=== PATIENT | male | born 1985 | race Caucasian/White ===

== ENCOUNTER 2018-12-23 16:35 | Inpatient (IN) | payer OTHER ==
[~2018-12-23] VITALS: Ht 170.2 cm; Wt 95.3 kg
[2018-12-23 18:20] LABS: BASOPHILS 0.2 % (0-2); EOSINOPHILS 0.1 % (0-7); HEMATOCRIT 44.1 % (42.0-54.0); HEMOGLOBIN 15.9 g/dL (13.5-17.5); IMMATURE GRANULOCYTES 0.3 % (0-5); LYMPHOCYTES 8.4 % (15-50); MCH 31.3 pg (26.0-34.0); MCHC 36.1 g/dL (31.0-37.0); MCV 86.8 fL (80.0-100.0); MEAN PLATELET VOLUME 9.6 fL (7.4-10.4); MONOCYTES 7.7 % (2-11); NEUTROPHILS 83.3 % (40-80); PLATELET COUNT 238 10x3/uL (130-400); RBC 5.08 10x6/uL (4.20-6.10); RDW 12.4 % (11.5-14.5); WBC 19.8 10x3/uL (4.8-10.8)
[2018-12-23 18:30] LABS: ALKALINE PHOSPHATASE 98 U/L (46-116); ALT (SGPT) 59 U/L (10-68); AMYLASE - SERUM 58 U/L (25-115); BILIRUBIN - TOTAL 0.47 mg/dL (0.2-1.3); CALC OSMOLALITY 273 mosm/kg (275-300); CALCIUM 9.2 mg/dL (8.5-10.1); CARBON DIOXIDE 27.6 mmol/L (21.0-32.0); CHLORIDE - SERUM 98 mmol/L (98-107); GLUCOSE 114 mg/dL (74-106); LIPASE 125 U/L (73-393); POTASSIUM - SERUM 3.9 mmol/L (3.5-5.1); PROTEIN - SERUM 8.1 g/dL (6.4-8.2); SODIUM 137 mmol/L (136-145); UREA NITROGEN 11 mg/dL (7-18); eGFR NON AFRICAN AMERICAN 90 mL/min (90-120)
--- NOTE | 2018-12-23 18:34 | NUR ---
PT STABLE, CALL LIGHT WITHIN REACH, WILL CONTINUE TO MONITOR.
--- NOTE | 2018-12-23 19:00 | NUR ---
PT REPORT HANDED OFF TO SALOME BEAULIEU. PT STABLE, CALL LIGHT WITHIN REACH, WILL CONTINUE TO MONITOR.
--- NOTE | 2018-12-23 19:30 | NUR ---
ASSUMED CARE OF PATIENT, RESTING ON STRETCHER WITH FAMILY AT BEDIDE, NS INFUSING PER ORDER, DRINKING CONTRAST FOR CT.
[2018-12-23 20:05] VITALS: BP 121/80
--- NOTE | 2018-12-23 20:07 | NUR ---
TO CT VIA WHEELCHAIR PER TECH.
[2018-12-23 20:18] LABS: APPEARANCE CLEAR (CLEAR); BILIRUBIN NEGATIVE (NEGATIVE); COLOR YELLOW (YELLOW); GLUCOSE NEGATIVE (NEGATIVE); KETONE NEGATIVE (NEGATIVE); NITRITE NEGATIVE (NEGATIVE); PROTEIN NEGATIVE (NEGATIVE); UROBILINOGEN NORMAL (NORMAL)
--- NOTE | 2018-12-23 21:30 | NUR ---
PT WILL BE ADMITTED, ON A CLEAR LIQUID DIET, CHICKEN BROTH AND SPRITE GIVEN. PT C/O A HEADACHE, STATES IT'S 2/10 ON PAIN SCALE.
[2018-12-23 21:35] VITALS: BP 123/79
[2018-12-23 23:15] VITALS: BP 124/77
--- NOTE | 2018-12-23 23:15 | NUR ---
TYLENOL GIVEN FOR TEMP AND HEADACHE, CALL LIGHT WITHIN REACH.
--- NOTE | 2018-12-24 00:30 | NUR ---
PT ARRIVED TO THE FLOOR. ALERT AND ORIENTED. NO SIGNS OF DISTRESS. BREATHING EVEN AND UNLABORES. PT STATES NO PROBLEMS AT THIS TIME. VITALS STABLE. WILL CONTINUE PLAN OF CARE. CALL LIGHT IN REACH.
--- NOTE | 2018-12-24 01:29 | NUR ---
resting in bed resprations evennand unlabored call light in reach
[2018-12-24 04:00] VITALS: BP 121/76
[2018-12-24 05:15] VITALS: BP 123/74; BMI 32.9
--- NOTE | 2018-12-24 08:00 | NUR ---
REPORT RECIEVED ASSUMED CARE. PATIENT IN BED WITH IV INTACT. NO COMPLAINTS OR SIGNS OF DISTRESS. CALL LIGHT WITHIN REACH.
[2018-12-24 09:07] VITALS: BP 109/73; BP 119/80
--- NOTE | 2018-12-24 11:45 | NUR ---
PATIENT IN BED WITH IV INTACT. BSCDS ON AND WORKING. CALL LIGHT WITHIN REACH. NO COMPLAINTS OR SIGNS OF DSITRESS. CALL LIGHT WITHIN REACH.
[2018-12-24 11:55] LABS: BASOPHILS 0.1 % (0-2); EOSINOPHILS 0.2 % (0-7); HEMATOCRIT 40.4 % (42.0-54.0); HEMOGLOBIN 14.4 g/dL (13.5-17.5); IMMATURE GRANULOCYTES 0.3 % (0-5); LYMPHOCYTES 13.5 % (15-50); MCH 31.4 pg (26.0-34.0); MCHC 35.6 g/dL (31.0-37.0); MCV 88.2 fL (80.0-100.0); MEAN PLATELET VOLUME 9.5 fL (7.4-10.4); NEUTROPHILS 75.9 % (40-80); PLATELET COUNT 229 10x3/uL (130-400); RBC 4.58 10x6/uL (4.20-6.10); RDW 12.6 % (11.5-14.5); WBC 14.3 10x3/uL (4.8-10.8)
[2018-12-24 12:06] LABS: ALBUMIN 3.2 g/dL (3.4-5.0); ALKALINE PHOSPHATASE 89 U/L (46-116); ALT (SGPT) 50 U/L (10-68); BILIRUBIN - TOTAL 0.84 mg/dL (0.2-1.3); CALC OSMOLALITY 274 mosm/kg (275-300); CALCIUM 8.3 mg/dL (8.5-10.1); CARBON DIOXIDE 28.7 mmol/L (21.0-32.0); CHLORIDE - SERUM 102 mmol/L (98-107); CREATININE - SERUM 0.9 mg/dL (0.6-1.3); GLUCOSE 82 mg/dL (74-106); POTASSIUM - SERUM 3.5 mmol/L (3.5-5.1); PROTEIN - SERUM 7.2 g/dL (6.4-8.2); SODIUM 139 mmol/L (136-145); eGFR NON AFRICAN AMERICAN > 90 mL/min (90-120)
[2018-12-24 12:08] LABS: UREA NITROGEN 8 mg/dL (7-18)
[2018-12-24 13:23] VITALS: Ht 170.2 cm; Wt 95.3 kg
[2018-12-24 13:49] VITALS: BP 113/70
[2018-12-24 16:45] VITALS: BP 119/75
--- NOTE | 2018-12-24 18:52 | NUR ---
PATIENT IN BED WITH IV INTACT. NO COMPLAINTS OR SIGNS OF DISTRESS. FAMILY AT BEDSIDE. BSCDS OFF AT THIS TIME. CALL LIGHT WITHIN REACH.
--- NOTE | 2018-12-24 20:40 | NUR ---
PT RESTING IN BED. ALERT AND ORIENTED. NO SIGNS OF DISTRESS. BREATHING EVEN AND UNLABORED. PT STATES NO PROBLEMS AT THIS TIME. SKIN CLEAN DRY AND INTACT. IV SITE LT FA DRESSING CLEAN DRY AND INTACT. NO SIGNS OF INFECTION. BOWEL SOUNDS ACTIVE. LUNG SOUNDS CLEAR. NO LOWER LEG SWELLING PRESENT. WILL CONTINUE PLAN OF CARE. CALL LIGHT IN REACH.
[2018-12-24 21:20] VITALS: BP 113/77
[2018-12-25] VITALS (8 sets, daily range): BP systolic 104–116; BP diastolic 58–76
[2018-12-25 05:29] LABS: BASOPHILS 0.3 % (0-2); EOSINOPHILS 1.3 % (0-7); HEMATOCRIT 38.5 % (42.0-54.0); HEMOGLOBIN 13.3 g/dL (13.5-17.5); IMMATURE GRANULOCYTES 0.3 % (0-5); LYMPHOCYTES 21.2 % (15-50); MCH 30.8 pg (26.0-34.0); MCHC 34.5 g/dL (31.0-37.0); MCV 89.1 fL (80.0-100.0); MEAN PLATELET VOLUME 9.7 fL (7.4-10.4); MONOCYTES 8.6 % (2-11); NEUTROPHILS 68.3 % (40-80); PLATELET COUNT 223 10x3/uL (130-400); RBC 4.32 10x6/uL (4.20-6.10); RDW 12.6 % (11.5-14.5); WBC 11.9 10x3/uL (4.8-10.8)
[2018-12-25 06:22] LABS: ALKALINE PHOSPHATASE 83 U/L (46-116); ALT (SGPT) 40 U/L (10-68); BILIRUBIN - TOTAL 0.57 mg/dL (0.2-1.3); CALC OSMOLALITY 275 mosm/kg (275-300); CALCIUM 8.2 mg/dL (8.5-10.1); CARBON DIOXIDE 25.6 mmol/L (21.0-32.0); CHLORIDE - SERUM 102 mmol/L (98-107); CREATININE - SERUM 0.8 mg/dL (0.6-1.3); GLUCOSE 99 mg/dL (74-106); POTASSIUM - SERUM 3.9 mmol/L (3.5-5.1); PROTEIN - SERUM 6.4 g/dL (6.4-8.2); SODIUM 139 mmol/L (136-145); UREA NITROGEN 7 mg/dL (7-18); eGFR NON AFRICAN AMERICAN > 90 mL/min (90-120)
--- NOTE | 2018-12-25 09:53 | NUR ---
PT RESTING QUIETLY IN BED. NO ACUTE DISTRESS NOTED AT THIS TIME. CL WITHIN REACH. CONTINUE TO MONITOR.
--- NOTE | 2018-12-25 10:06 | NUR ---
PATIENT UP AND IN SHOWER AT 0730, SKIN W/D TO TOUCH, COLOR PINK, RESP. REGULAR AND EVEN AT 20. 1/2 NS IINFUSING AT 125 MLS VIA LEFT FOREARM VIA PUMP, NO REDNESS OR SWELLING NOTED. ABDOMEN FIRM WITH BS + IN ALL 4 QUADS. PATIENT CONSUMED 100% OF CLEAR LIQUID BREAKFAST. DENIES ANY C/O WHEN ASKED.
--- NOTE | 2018-12-25 15:31 | NUR ---
NUTRITION F/U PROVIDED PT WITH DIVERTICULITIS DIET GUIDELINES. INSTRUCTED PT TO START LOW FIBER DIET AT DC WITH GRADUAL INCREASE TO HI FIBER DIET. ALSO ENCOURAGED ADEQUATE FLUID INTAKE. PT VOICED UNDERSTANDING. RD FOLLOWING
--- NOTE | 2018-12-25 16:13 | NUR ---
PATIENT C/O NAUSEA ZODRAN 8 MG IVP GIVEN. PATIENT WALKING ABOUT FACILITY.
--- NOTE | 2018-12-25 16:55 | MORECARE ---
CASE MANAGEMENT DISCHARGE SUMMARY PATIENT: SAMIR ARANA UNIT: [id number] ADM DATE: 12/23/18 AGE: 33 : 81 SEX: M ROOM/BED: D.2229 AUTHOR: ESTELLE COON PHYSICIAN: REFERRING PHYSICIAN: MICHELLE FREIRE DO DATE OF SERVICE: 12/25/18 Discharge Plan Patient Name: SAMIR ARANA Facility: [facility]:[place] : 1985 Planned Disposition: Home Anticipated Discharge Date: Discharge Date: Expected LOS: Initial Reviewer: [email or web address] Initial Review Date: 12/25/2018 Generated: 12/25/18 5:55 pm Comments DCP- Discharge Planning Updated by [email or web address]: Miranda Madrid on 12/25/18 3:[address] Patient Name: SAMIR ARANA Admission Status: ER Accout number: [id number] Admission Date: 12-23-2018 : 1985 Admission Diagnosis: Attending: MICHELLE FREIRE Current LOS: 2 Anticipated DC Date: Planned Disposition: Home Primary Insurance: [employer] POS Discharge Planning Comments: CM met with patient to discuss discharge planning, he is alone in the room. States he lives independently with his and 2 children in a one story home. He has no DME or need any DME. 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 He does not use any outside community resources and declines need. His or parents will drive him home on discharge. No needs identified. CM will continue to follow and assist with discharge planning/needs. Sports Team Marketing Intern: Miranda Madrid DCPIA - Discharge Planning Initial Assessment Updated by [email or web address]: Miranda Madrid on 12/25/18 4:52 pm * Is the patient Alert and Oriented? Yes * How many steps to enter\exit or inside your home? 4/0 * PCP Dr. Zaldivar * Pharmacy [facility] * Preadmission Environment Home with Family * ADLs Independent * Equipment None * List name and contact numbers for known caregivers / representatives who currently or will assist patient after discharge: Maria Victoria Arana - - [phone] * Verbal permission to speak to the caregivers and representatives has been obtained from the patient. Yes * Community resources currently utilized None * Additional services required to return to the preadmission environment? No * Can the patient safely return to the preadmission environment? Yes * Has this patient been hospitalized within the prior 30 days at any hospital? No Patient Name: SAMIR ARANA Page [id number] at 1655 All edits/amendments must be made on the electronic document DICTATION DATE: 12/25/181653 EPITAXIAL REACTOR OPERATOR: CRYSTAL 12/25/181653 RPT#: [id number] DC DATE: STATUS: ADM IN [facility] [address] [place] [address] END OF REPORT
--- NOTE | 2018-12-25 20:30 | NUR ---
PT RESTING IN BED. ALERT AND ORIENTED. NO SIGNS OF DISTRESS. BREATHING EVEN AND UNLABORED. PT STATES NO PROBLEMS AT THIS TIME. IV SITE LT FA DRESSING CLEAN DRY AND INTACT. NO SIGNS OF INFECTION. SKIN CLEAN SRY AND INTACT. BOWEL SOUNDS ACTIVE. NO LOWER LEG SWELLING PRESENT. WILL CONTINUE PLAN OF CARE. CALL LIGHT IN REACH. BED LOWERED AND LOCKED. BED RAIL X1.
[2018-12-26 00:14] VITALS: BP 108/67
[2018-12-26 04:12] LABS: BASOPHILS 0.3 % (0-2); EOSINOPHILS 1.4 % (0-7); HEMATOCRIT 38.9 % (42.0-54.0); HEMOGLOBIN 13.5 g/dL (13.5-17.5); IMMATURE GRANULOCYTES 0.3 % (0-5); LYMPHOCYTES 19.4 % (15-50); MCHC 34.7 g/dL (31.0-37.0); MCV 89.2 fL (80.0-100.0); MEAN PLATELET VOLUME 9.3 fL (7.4-10.4); MONOCYTES 8.1 % (2-11); NEUTROPHILS 70.5 % (40-80); PLATELET COUNT 240 10x3/uL (130-400); RBC 4.36 10x6/uL (4.20-6.10); RDW 12.5 % (11.5-14.5); WBC 11.7 10x3/uL (4.8-10.8)
--- NOTE | 2018-12-26 04:13 | NUR ---
AGREE WITH PROJECT LANDSCAPE ARCHITECT ASSESSMENT. NO NEEDS AT THIS TIME. WILL CONTINUE TO MONITOR
[2018-12-26 04:28] LABS: ALBUMIN 3.1 g/dL (3.4-5.0); ALKALINE PHOSPHATASE 71 U/L (46-116); ALT (SGPT) 36 U/L (10-68); BILIRUBIN - TOTAL 0.46 mg/dL (0.2-1.3); CALC OSMOLALITY 275 mosm/kg (275-300); CALCIUM 8.4 mg/dL (8.5-10.1); CARBON DIOXIDE 27.5 mmol/L (21.0-32.0); CHLORIDE - SERUM 103 mmol/L (98-107); CREATININE - SERUM 0.9 mg/dL (0.6-1.3); GLUCOSE 105 mg/dL (74-106); POTASSIUM - SERUM 3.9 mmol/L (3.5-5.1); SODIUM 139 mmol/L (136-145); UREA NITROGEN 7 mg/dL (7-18); eGFR NON AFRICAN AMERICAN > 90 mL/min (90-120)
[2018-12-26 08:45] VITALS: BP 112/68
[2018-12-26 12:45] VITALS: BP 120/78
--- NOTE | 2018-12-26 13:20 | NUR ---
OVENS SUPERVISOR NOTE-PT HAS BEEN UP IN [facility] WITHOUT COMPLAINTS. STATES HE IS HOPING FOR DISCHARGE TODAY. STATES HAD OATMEAL FOR AM MEAL AND IS TOLERATING THAT WELL.
[2018-12-26] MEDS ORDERED: LEVAQUIN750 MG PO (14:46)
[2018-12-26] MEDS ORDERED: FLAGYL500 MG PO (14:46)
[2018-12-26 16:53] VITALS: BP 112/68
--- NOTE | 2018-12-26 18:35 | NUR ---
PATIENT TOLERATED SUPPER TRAY WELL LEVAQUIN 750 MG IVPB INFUSING PATIENT WILL WAIT TIL 1999 AND IF NO NAUSEA OR ABDOMINAL PAIN CAN DISCHARGE.
--- NOTE | 2018-12-26 20:01 | NUR ---
IV REMOVED TIP INTACT, DISCHARGED PER WC WITH BELONGINGS, PT STATES [employer] WENT OVER PAPER WORK AND ANSWERED QUESTIONS
--- NOTE | 2018-12-30 12:13 | MORECARE ---
CASE MANAGEMENT DISCHARGE SUMMARY PATIENT: SAMIR ARANA UNIT: [id number] ADM DATE: 12/23/18 AGE: 33 : 81 SEX: M ROOM/BED: D.2229 AUTHOR: ESTELLE COON PHYSICIAN: REFERRING PHYSICIAN: MICHELLE FREIRE DO DATE OF SERVICE: 12/30/18 Discharge Plan Patient Name: SAMIR ARANA Facility: [facility]:[place] : 1985 Planned Disposition: Home Anticipated Discharge Date: Discharge Date: 12/26/2018 Expected LOS: 0 Initial Reviewer: [email or web address] Initial Review Date: 12/25/2018 Generated: 12/30/18 1:13 pm Comments DCP- Discharge Planning Updated by [email or web address]: Miranda Madrid on 12/25/18 3:[address] Patient Name: SAMIR ARANA Admission Status: ER Accout number: [id number] Admission Date: 12-23-2018 : 1985 Admission Diagnosis: Attending: MICHELLE FREIRE Current LOS: 2 Anticipated DC Date: Planned Disposition: Home Primary Insurance: [employer] POS Discharge Planning Comments: CM met with patient to discuss discharge planning, he is alone in the room. States he lives independently with his and 2 children in a one story home. He has no DME or need any DME. 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 He does not use any outside community resources and declines need. His or parents will drive him home on discharge. No needs identified. CM will continue to follow and assist with discharge planning/needs. Emd Teacher: Miranda Mardid DCPIA - Discharge Planning Initial Assessment Updated by [email or web address]: Miranda Madrid on 12/25/18 4:52 pm * Is the patient Alert and Oriented? Yes * How many steps to enter\exit or inside your home? 4/0 * PCP Dr. Zaldivar * Pharmacy [facility] [address] * Preadmission Environment Home with Family * ADLs Independent * Equipment None * List name and contact numbers for known caregivers / representatives who currently or will assist patient after discharge: Maria Victoria Arana - - [phone] * Verbal permission to speak to the caregivers and representatives has been obtained from the patient. Yes * Community resources currently utilized None * Additional services required to return to the preadmission environment? No * Can the patient safely return to the preadmission environment? Yes * Has this patient been hospitalized within the prior 30 days at any hospital? No Last DP export: 12/25/18 3:55 pm Patient Name: SAMIR ARANA Page [id number] at 1213 All edits/amendments must be made on the electronic document DICTATION DATE: 12/30/181211 TAKER OFF DRYING KILN: CRYSTAL 12/30/18 121 RPT#: [id number] DC DATE:12/26/18 STATUS: DIS IN [facility] [address] [place] [address] END OF REPORT
== END 2018-12-26 20:03 | disposition home or self-care (01) | DRG 392 ==
LOC: D.ER 16:35 → D.MS 23:18
PROVIDERS: Emergency Medicine; Family Medicine; ADMIT Family Medicine
DX: K57.32 Diverticulitis of large intestine without perforation or abscess without bleeding (principal); Z87.891 Personal history of nicotine dependence